=== PATIENT | male | born 1970 | race Caucasian/White ===

== ENCOUNTER 2018-10-16 09:12 | Outpatient (CLI) | payer SELFPAY | END 2018-10-16 09:13 | disposition critical access hospital (66) | LOC: EMS 09:12 | PROVIDERS: ATTEND Surgery | DX: M54.5 Low back pain (principal); W11.XXXA Fall on and from ladder, initial encounter | CPT/HCPCS: A0425; A0427 ==

== ENCOUNTER 2018-10-16 09:58 | Emergency (ER) | payer SELFPAY ==
--- NOTE | 2018-10-16 10:15 | ED Physician Documentation ---
PD HPI Fall - Stated complaint Stated Complaint: 10 FOOT FALL - Chief complaint Chief Complaint: Trauma Ch/Bk - History obtained from History obtained from: Patient, EMS - History of Present Illness Mechanism of injury: Other (ladder slipped on wet loading platform) Fall distance: 5 to 10ft Where injury occurred: Work Timing - onset: Today Injury(ies) location: Back Quality of pain: Pain Associated symptoms: No: LOC, AMS, Amnesia, Seizures, Ear drainage, Nasal drainage, Neck pain, Weakness, Paresthesias, Dyspnea, Nausea / vomiting, Hematemesis Symptoms improve with: Rest Worsens with: Movement, Palpation Contributing factors: No: Anticoagulated Similar symptoms before: Has not had sx before Recently seen: Not recently seen - Additional information Additional information: 48-year-old male was up on a roof and went to get off of the roof onto a ladder and the ladder slipped out from underneath him and he fell approximately 10 feet onto his back. He fell on to a wooden loading dock and landed across his TL region. The top part of his back was not supported. He did not hit his head, he denies any abdominal pain, he does have pain in his back at the TL junction and he has not tried to move around. He denies shortness of breath nausea vomiting or amnesia. Review of Systems Constitutional: denies: Fever, Chills, Myalgias Eyes: denies: Decreased vision Ears: denies: Ear pain Nose: reports: Rhinorrhea / runny nose, Congestion Throat: denies: Sore throat Cardiac: denies: Chest pain / pressure, Palpitations Respiratory: reports: Cough. denies: Dyspnea GI: reports: Abdominal Pain. denies: Nausea, Vomiting : denies: Dysuria, Frequency Skin: denies: Rash Musculoskeletal: reports: Back pain. denies: Neck pain, Extremity pain Neurologic: denies: Generalized weakness, Focal weakness, Numbness PD PAST MEDICAL HISTORY - Present Medications Home Medications: Ambulatory Orders Medication Instructions Recorded Confirmed No Known Home Medications 10/16/18 10/16/18 - Allergies Allergies/Adverse Reactions: Allergies Allergy/AdvReac Type Severity Reaction Status Date / Time seafood AdvReac Nausea Uncoded 10/16/18 10:09 PD ED PE NORMAL - Vitals Vital signs reviewed: Yes (normal ) - General General: Alert and oriented X 3, No acute distress, Well developed/nourished, Other (laying flat not moving patient appears comfortable and he has been medicated. ) - HEENT HEENT: Atraumatic, PERRL, EOMI - Neck Neck: Supple, no meningeal sign, No bony TTP - Cardiac Cardiac: RRR, No murmur - Respiratory Respiratory: No respiratory distress, Clear bilaterally - Abdomen Abdomen: Soft, Non tender - Back Back: No CVA TTP, Other (There is specific point tenderness over the T/L junction and to the ribs at the T/L junction. There is not tenderness laterally/ ) - Derm Derm: Normal color, Warm and dry, No rash - Extremities Extremities: No deformity, No edema - Neuro Neuro: No motor deficit, No sensory deficit Eye Opening: Spontaneous Motor: Obeys Commands Verbal: Oriented GCS Score: 15 - Psych Psych: Normal mood, Normal affect Results - Vitals Vitals: Vital Signs - 24 hr 10/16/18 10/16/18 10/16/18 10:01 11:18 13:24 Temperature 36.2 C L Heart Rate 58 L 59 L 65 Respiratory 14 18 16 Rate Blood Pressure 132/80 H 131/73 H 126/77 O2 Saturation 97 94 95 10/16/18 10/16/18 10/16/18 13:35 14:05 14:30 Temperature 36.6 C Heart Rate 76 63 67 Respiratory 18 20 18 Rate Blood Pressure 129/89 H 135/75 H 141/85 H O2 Saturation 94 94 93 Oxygen O2 Source Room air - Labs Labs: Laboratory Tests 10/16/18 10/16/18 10/16/18 10:13 10:13 10:13 WBC 6.1 RBC 4.51 L Hgb 14.5 Hct 41.1 L MCV 91.1 MCH 32.1 H MCHC 35.3 RDW 12.9 Plt Count 234 MPV 6.8 L Neut # (Auto) 4.8 Lymph # (Auto) 0.7 L [place] # (Auto) 0.4 Eos # (Auto) 0.1 Baso # (Auto) 0.0 Absolute Nucleated RBC 0.00 Nucleated RBC % 0.0 Sodium 137 Potassium 4.0 Chloride 103 Carbon Dioxide 28 Anion Gap 6.0 BUN 12 Creatinine 0.7 Estimated GFR (MDRD) 121 Glucose 108 H Calcium 8.6 Total Bilirubin 1.1 H AST 30 ALT 20 Alkaline Phosphatase 54 Troponin I < 0.04 Total Protein 7.0 Albumin 3.9 Globulin 3.1 Albumin/Globulin Ratio 1.3 Lipase 25 Urine Color Urine Clarity Urine pH Ur Specific [place] Urine Protein Urine Glucose (UA) Urine Ketones Urine Occult Blood Urine Nitrite Urine Bilirubin Urine Urobilinogen Ur Leukocyte Esterase Urine RBC Urine WBC Ur Squamous Epith Cells Urine Bacteria Ur Microscopic Review Urine Culture Comments 10/16/18 13:27 WBC RBC Hgb Hct MCV MCH MCHC RDW Plt Count MPV Neut # (Auto) Lymph # (Auto) [place] # (Auto) Eos # (Auto) Baso # (Auto) Absolute Nucleated RBC Nucleated RBC % Sodium Potassium Chloride Carbon Dioxide Anion Gap BUN Creatinine Estimated GFR (MDRD) Glucose Calcium Total Bilirubin AST ALT Alkaline Phosphatase Troponin I Total Protein Albumin Globulin Albumin/Globulin Ratio Lipase Urine Color YELLOW Urine Clarity CLEAR Urine pH 5.5 Ur Specific [place] 1.020 Urine Protein TRACE Urine Glucose (UA) NEGATIVE Urine Ketones 15 H Urine Occult Blood MODERATE H Urine Nitrite NEGATIVE Urine Bilirubin NEGATIVE Urine Urobilinogen 0.2 (NORMAL) Ur Leukocyte Esterase NEGATIVE Urine RBC 0-5 Urine WBC 0-3 Ur Squamous Epith Cells RARE Squamous Urine Bacteria Rare Ur Microscopic Review INDICATED Urine Culture Comments NOT INDICATED - Rads (name of study) CT chest with Radiology: Prelim report reviewed (Impression: Vertical fracture L1 vertebral body), EMP read indepedently, See rad report ab/pel with Radiology: Prelim report reviewed (Impression: 1. Comminuted vertical and horizontal fracture through the mid L1 vertebral body, involving the left transverse and spinous processes, with associated prevertebral hematoma and 3 mm retropulsion of posterior cortex. 2. Nondisplaced fracture of left L2 transverse process.), EMP read indepedently, See rad report PD MEDICAL DECISION MAKING - ED course Complexity details: reviewed results, re-evaluated patient, considered differential, d/w patient, d/w family ED course: 48-year-old male with a fall off of a ladder landing directly on his back has an L1 burst fracture. There is about 3 mm of retropulsion and no neuro deficits. The emergency department physician Dr. Newton at [facility] is consulted in the case and graciously accepts the patient in transfer for further evaluation and treatment. Departure - Departure Disposition: 02 Transfer Acute Care Hosp Clinical Impression: Burst fracture of lumbar vertebra Qualifiers: Encounter type: initial encounter Fracture type: closed Qualified Code(s): S32.001A - Stable burst fracture of unspecified lumbar vertebra, initial encounter for closed fracture Condition: Stable Discharge Date/Time: 10/16/18 14:50
[2018-10-16] MEDS ORDERED: IOVERSOL 320 100 ML VIAL IVP ONE ×2 (10:19→11:37)
[2018-10-16 10:24] LABS: BASOPHILS % (AUTO) 0.4 %; EOSINOPHILS # (AUTO) 0.1 10^3/uL (0.0-0.7); HGB - HEMOGLOBIN 14.5 g/dL (14.0-18.0); LYMPHOCYTES # (AUTO) 0.7 10^3/uL (1.5-3.5); MEAN CORPUSCULAR HEMOGLOBIN 32.1 pg (27.0-31.0); MEAN CORPUSCULAR HGB CONC 35.3 g/dL (32.0-36.0); MEAN CORPUSCULAR VOLUME 91.1 fL (80.0-94.0); MEAN PLATELET VOLUME 6.8 fL (7.4-11.4); MONOCYTES # (AUTO) 0.4 10^3/uL (0.0-1.0); MONOCYTES % (AUTO) 6.7 %; NEUTROPHILS # (AUTO) 4.8 10^3/uL (1.5-6.6); NEUTROPHILS % (AUTO) 79.9 %; PLT - PLATELET COUNT 234 10^3/uL (130-450); RED BLOOD COUNT 4.51 10^6/uL (4.70-6.10); RED CELL DISTRIBUTION WIDTH 12.9 % (12.0-15.0); WHITE BLOOD COUNT 6.1 x10^3/uL (4.8-10.8)
[2018-10-16 10:34] LABS: ALBUMIN 3.9 g/dL (3.2-5.5); ALBUMIN/GLOBULIN RATIO 1.3 (1.0-2.2); BILIRUBIN,TOTAL 1.1 mg/dL (0.2-1.0); CALCIUM 8.6 mg/dL (8.5-10.3); CREATININE 0.7 mg/dL (0.6-1.2)
[2018-10-16] MEDS ORDERED: ONDANSETRON 4 MG/2 ML VIAL IVP STA ×2 (11:47→13:20)
[2018-10-16] MEDS ORDERED: HYDROmorphone 1 MG/ML CARPUJECT IVP STA ×3 (11:47→14:30)
--- NOTE | 2018-10-16 11:47 | CT Report ---
Reason: 10 foot fall T/L pain Procedure Date: 10/16/2018 Accession Number: [id number] / [id number] Procedure: CT - Chest W/ CPT Code: FULL RESULT: EXAM: CT CHEST EXAM DATE: 10/16/2018 11:05 AM. CLINICAL HISTORY: 10 foot fall T/L pain. COMPARISONS: None. TECHNIQUE: Routine helical CT imaging was performed through the chest. IV contrast: Optiray 320, 100 mL. Reconstructions: Coronal and sagittal. In accordance with CT protocol optimization, one or more of the following dose reduction techniques were utilized for this exam: automated exposure control, adjustment of mA and/or KV based on patient size, or use of iterative reconstructive technique. FINDINGS: Lungs/Pleura: No nodules, bronchial thickening, consolidation, or edema. Pulmonary vasculature is normal. No pericardial or pleural effusion. No pneumothorax. Mediastinum: Normal. No adenopathy or masses. The heart and great vessels are normal. Bones: Vertical fracture through L1 vertebral body. Other: None. IMPRESSION: Vertical fracture L1 vertebral body. RADIA
--- NOTE | 2018-10-16 12:04 | CT Report ---
Reason: 10 ft fall onto back T/L junction pain Procedure Date: 10/16/2018 Accession Number: [id number] / [id number] Procedure: CT - Abdomen/Pelvis W/ CPT Code: FULL RESULT: EXAM: CT ABDOMEN AND PELVIS EXAM DATE: 10/16/2018 11:05 AM. CLINICAL HISTORY: 10 ft fall onto back T/L junction pain. COMPARISONS: 10/14/2014. TECHNIQUE: Routine helical CT imaging was performed through the abdomen and pelvis. IV contrast: OPTI 320 100mL. Enteric contrast: No. Reconstructions: Coronal and sagittal. In accordance with CT protocol optimization, one or more of the following dose reduction techniques were utilized for this exam: automated exposure control, adjustment of mA and/or KV based on patient size, or use of iterative reconstructive technique. FINDINGS: Lung Bases: Unremarkable. Liver: Normal. No masses. Gallbladder/Bile Ducts: Unremarkable. Spleen: Normal. Pancreas: Normal. Adrenal Glands: Normal. Kidneys: Bilateral hypodense lesions, suggestive of cysts or too small to characterize. A nonobstructive left renal calculus measures 5 mm, not seen on 2014 CT. Mild fullness of the left renal pelvis, without evidence of obstructing calculus or lesion. Peritoneal Cavity/Bowel: No free air. No masses or acute inflammatory process. Pelvic Organs: The bladder and visualized pelvic organs are within normal limits. Vasculature: No aneurysms or other significant abnormality. Bones: Comminuted vertical and horizontal fracture through the mid L1 vertebral body, with associated prevertebral hematoma and 3 mm retropulsion of the superior posterior cortex into the spinal canal (sagittal image 37) (coronal image 33). Approximate 40% vertebral body height loss from compression of the superior endplate. L1 fracture also involves the nondisplaced left transverse process (axial image 27) and nondisplaced spinous process (axial image 28).Nondisplaced fracture of the left L2 transverse process (axial image 34). Other: None. IMPRESSION: 1. Comminuted vertical and horizontal fracture through mid L1 vertebral body, involving the left transverse and spinous processes, with associated prevertebral hematoma and 3 mm retropulsion of posterior cortex. 2. Nondisplaced fracture of left L2 transverse process. Findings discussed with at 12:03 pm. RADIA
[2018-10-16 13:37] LABS: BILIRUBIN,URINE NEGATIVE (NEGATIVE); GLUCOSE, URINE (UA) NEGATIVE (NEGATIVE); KETONES,URINE (UA) 15 mg/dL (NEGATIVE); LEUKOCYTE ESTERASE, URINE NEGATIVE (NEGATIVE); NITRITE,URINE NEGATIVE (NEGATIVE); OCCULT BLOOD,URINE MODERATE (NEGATIVE); PH,URINE 5.5 PH (5.0-7.5); PROTEIN,URINE TRACE mg/dL (NEGATIVE); UROBILINOGEN,URINE 0.2 (NORMAL) E.U./dL (NORMAL)
[2018-10-16 13:48] LABS: BACTERIA,URINE Rare /HPF (None Seen); CLARITY,URINE CLEAR (CLEAR); RBC,URINE 0-5 /HPF (0-5); SQUAMOUS EPITHELIAL CELL,UR RARE Squamous (<= Few)
[2018-10-16 14:33] VITALS: BP 141/85
== END 2018-10-16 14:50 | disposition short-term general hospital (02) ==
LOC: EDUNIT# → ED 09:58
DX: S32.001A Stable burst fracture of unspecified lumbar vertebra, initial encounter for closed fracture (principal); W17.89XA Other fall from one level to another, initial encounter; W11.XXXA Fall on and from ladder, initial encounter
CPT/HCPCS: 36415; 71260; 74177; 80053; 81001; 83690; 84484; 85025; 96374; 96376; 99284; 99285; J1170; Q9967; 81003; 87086

== ENCOUNTER 2018-10-16 14:47 | Outpatient (CLI) | payer SELFPAY | END 2018-10-16 23:59 | disposition short-term general hospital (02) | LOC: EMS 14:47 | PROVIDERS: ATTEND Surgery | DX: S32.011A Stable burst fracture of first lumbar vertebra, initial encounter for closed fracture (principal); W17.89XA Other fall from one level to another, initial encounter | CPT/HCPCS: A0170; A0425; A0426 ==